=== PATIENT | male | born 2000 | race African-American/Black ===

== ENCOUNTER 2020-03-05 03:57 | Emergency (ER) | payer OTHER ==
[~2020-03-05] VITALS: Ht 185.4 cm; Wt 83.9 kg
[2020-03-05 04:06] VITALS: BP 130/63
== END 2020-03-05 04:24 | disposition home or self-care (01) ==
LOC: ER 03:57
DX: Z04.1 Encounter for examination and observation following transport accident (principal); V40.5XXA Car driver injured in collision with pedestrian or animal in traffic accident, initial encounter; Y93.89 Activity, other specified; Y92.89 Other specified places as the place of occurrence of the external cause; Y99.8 Other external cause status